=== PATIENT | male | born 1975 | race Caucasian/White ===

== ENCOUNTER 2023-05-31 11:36 | Day surgery (SDC) | payer BC ==
[2023-05-31] MEDS: Lactated Ringers 1,000 ML IV SCH (12:11)
[2023-05-31] MEDS ORDERED: Midazolam 1 MG/ML 2 ML SDV ONE (12:35)
[2023-05-31] MEDS ORDERED: Propofol 200 MG/20 ML SDV ONE (12:35)
[2023-05-31] MEDS ORDERED: fentaNYL 50 MCG/ML SDV ONE ×2 (12:35)
[2023-05-31] MEDS ORDERED: Ketamine 200 MG/20 ML MDV ONE (12:35)
== END 2023-05-31 13:38 | disposition home or self-care (01) ==
LOC: CC.SDS 11:36
PROVIDERS: ATTEND Family Medicine
DX: Z12.11 Encounter for screening for malignant neoplasm of colon (principal); I83.819 Varicose veins of unspecified lower extremity with pain; Z87.891 Personal history of nicotine dependence
CPT/HCPCS: J2250; J2704; J3010; J3490; J7120

== ENCOUNTER → 2023-09-03 | Day surgery (SDC) | payer BC ==
[2023-09-03] MEDS: Lidocaine 1% 30 ML SDV SUBCUT ONE ×2 (12:00→12:26)
== END ==
LOC: CC.SDS 10:55
PROVIDERS: ATTEND Family Medicine
DX: I87.2 Venous insufficiency (chronic) (peripheral) (principal); I83.819 Varicose veins of unspecified lower extremity with pain
CPT/HCPCS: C1888; J3490